=== PATIENT | female | born 1980 | race Caucasian/White ===

== ENCOUNTER 2020-09-04 11:52 | Emergency (ER) | payer OTHER ==
[~2020-09-04] VITALS: Ht 160 cm; Wt 65.8 kg
[~2020-09-04 11:52] MED LIST: PERCOCET 5/3251 TAB PO
== END 2020-09-04 15:24 | disposition home or self-care (01) ==
LOC: ER 11:52
DX: R42 Dizziness and giddiness (principal)

== ENCOUNTER 2020-09-06 16:51 | Emergency (ER) | payer OTHER ==
[~2020-09-06] VITALS: Ht 160 cm; Wt 65.8 kg
== END 2020-09-06 19:27 | disposition home or self-care (01) ==
LOC: ER 16:51
DX: M94.0 Chondrocostal junction syndrome [Tietze] (principal); F06.4 Anxiety disorder due to known physiological condition

== ENCOUNTER 2023-03-18 23:57 | Emergency (ER) | payer OTHER ==
[~2023-03-18] VITALS: Ht 160 cm; Wt 71.2 kg
[2023-03-19] MEDS ORDERED: MEDROLPACK PO (03:36)
[2023-03-19] MEDS ORDERED: DICLOFENAC POTA50 MG PO (03:36)
[2023-03-19] MEDS ORDERED: NORFLEX100MG PO (03:36)
== END 2023-03-19 04:19 | disposition home or self-care (01) ==
LOC: ER 23:58
DX: M79.644 Pain in right finger(s) (principal); Z88.2 Allergy status to sulfonamides